=== PATIENT | male | born 1975 ===

== ENCOUNTER 2024-09-30 05:58 | Day surgery (SDC) | payer OTHER ==
[2024-09-22 08:41] VITALS: BP 144/90
[2024-09-22 09:55] LABS: INR 1.02; PARTIAL THROMBOPLASTIN TIME 26.3 SECONDS (22.0-34.0); PROTHROMBIN TIME 11.1 SECONDS (9.0-11.5)
[~2024-09-30] VITALS: Ht 177.8 cm; Wt 61.2 kg
[~2024-09-30 05:58] MED LIST: KLONOPIN; NIFEDIPINE20 MG PO; ZOLPIDEM TARTR3.5 MG
[2024-09-30] MEDS ORDERED: CEFAZOLIN SODIUM 1,000 MG VIAL IV ONE (10:00)
[2024-09-30] MEDS ORDERED: MORPHINE SULFATE 4 MG/ML VIAL IV ONE (11:25)
[2024-09-30] MEDS ORDERED: SUGAMMADEX SODIUM 200 MG/2 ML VIAL IV ONE (11:30)
== END 2024-09-30 16:30 | disposition home or self-care (01) ==
LOC: CIR.AMB 05:58
PROVIDERS: ATTEND Surgery
DX: K43.6 Other and unspecified ventral hernia with obstruction, without gangrene (principal)
CPT/HCPCS: 49594; C1781